=== PATIENT | female | born 1940 | race Caucasian/White ===

== ENCOUNTER 2018-01-09 12:20 | Emergency (ER) | payer OTHER ==
[~2018-01-09] VITALS: Ht 162.6 cm; Wt 91.8 kg
[~2018-01-09 12:20] MED LIST: ADVAIR 250/501 DISK IH; AMLODIPINE BESY10 MG PO; AMLODIPINE BESYL5 MG PO; ANTIVERT25 MG PO; ASPIRIN EC325 MG PO; ASPIRIN81 M1 PO; ATENOLOL100 M1 PO; ATENOLOL100 MG PO; ATORVASTATIN CA20 MG PO; ATORVASTATIN CA80 MG PO; CALCIUM-MAGNES1 EA11 PO; CALCIUM/MAGN1 TABLE2 PO; CITALOPRAM HBR10 MG PO; CLEOCIN300 MG PO; CRESTOR10 MG PO; DIGESTIVE ADVA1 EAC1 PO; DIGESTIVE ADVANTAGE PO; DIOVAN320 MG PO; DORZOLAMIDE HCL10 ML LEFT EYE; EFFEXOR XR75 MG PO; FIBER500 MG PO; FISH OIL CONC1 EACH PO; FLEXERIL10 MG PO; HEPARIN SO5000 UNITS SC; HYDROCHLOROTH12.5 M3 PO; HYDRODIURIL,ORE25 MG PO; LO-DOSE ASPIRIN81 M2 PO; LOVAZA1 GM PO; LOVENOX40 MG/0.4 SC; NEXIUM40 MG PO; NORVASC5 MG PO; Non-Formulary PO; PREDNISONE50 MG PO; SENNA PLUS TAB1 EACH PO; TRAMADOL HCL50 MG PO; TYLENOL REGULA325 MG PO; ULTRAM50 MG PO; XALATAN2.5 ML LEFT EYE; XALATAN2.5 ML RIGHT EYE; [UNRECOGNIZED DRUG - REMARK] PO
[2018-01-09 13:16] LABS: BASOPHIL (%) 0.7 % (0-1); BASOPHIL COUNT 0.1 K/uL (0-0.1); EOSINOPHIL (%) 3.2 % (0-5); EOSINOPHIL COUNT 0.3 K/uL (0-0.3); HEMATOCRIT 37.6 % (36.0-46.0); HEMOGLOBIN 12.4 G/DL (11.9-15.5); IMMATURE GRANULOCYTE (%) 0.3 % (0.0-0.7); LYMPHOCYTE (%) 18.8 % (15-42); LYMPHOCYTE COUNT 1.7 K/uL (1.0-2.8); MCH 29.6 PG (29.0-34.0); MCV 89.7 FL (83-99); MONOCYTE (%) 12.3 % (3-12); MONOCYTE COUNT 1.1 K/uL (0-0.8); NEUTROPHIL (%) 64.7 % (45-76); NEUTROPHIL COUNT 5.7 K/uL (1.8-6.4); PLATELET COUNT 250 K/uL (156-360); RBC DIS.WIDTH-CV 13.6 % (11.8-14.6); RBC DIS.WIDTH-SD 44.3 % (39-53); RED BLOOD COUNT 4.19 M/uL (3.80-5.20); WHITE BLOOD COUNT 8.8 K/uL (4.1-10.2)
[2018-01-09 13:24] LABS: CHLORIDE 102 mEq/L (99-109); POTASSIUM 4.6 mEq/L (3.7-5.4); SODIUM 138 mEq/L (136-147)
[2018-01-09 13:27] LABS: GLUCOSE 86 mg/dL (70-99); TOTAL PROTEIN 7.6 g/dL (6.4-8.3)
[2018-01-09 13:29] LABS: TOTAL BILIRUBIN 0.5 mg/dL (0.0-1.0)
[2018-01-09 13:30] LABS: PHOSPHORUS 3.6 mg/dL (2.5-4.9)
[2018-01-09 13:31] LABS: ALKALINE PHOSPHATASE 152 IU/L (3-129); CREATININE 0.9 mg/dL (0.6-1.3); GFR ESTIMATE (CALCULATED) > 59 mL/min/
[2018-01-09 13:32] LABS: AST (GOT) 33 IU/L (2-34); UREA NITROGEN (BUN) 19 mg/dL (9-23)
[2018-01-09 13:34] LABS: ALT (GPT) 24 IU/L (3-49); CREATINE KINASE 64 IU/L (1-294); TOTAL CK 64 IU/L (1-294)
[2018-01-09 13:40] LABS: CK-MB 1.4 ng/mL (0.0-4.9); CKMB RELATIVE INDEX 2.2 (0.0-3.9)
[2018-01-09 13:42] LABS: APPEARANCE CLEAR ((CLEAR)); BILIRUBIN NEGATIVE; BLOOD SMALL; COLOR YELLOW ((YELLOW)); GLUCOSE (STRIP) NEGATIVE; KETONES NEGATIVE; LEUKOCYTES NEGATIVE; NITRITE NEGATIVE; PROTEIN (STRIP) NEGATIVE; UROBILINOGEN 0.2 MG/DL (0.2-1.0)
[2018-01-09 13:45] LABS: BACTERIA RARE /HPF; EPITHELIAL CELLS RARE /HPF; HYALINE CASTS 0-5 /LPF; MUCUS TRACE /LPF; RED BLOOD CELLS 0-5 /HPF (0-5); UCUL ADDED? NO; WHITE BLOOD CELLS 0-5 /HPF (0-5)
[2018-01-09 17:21] VITALS: BP 144/67
== END 2018-01-09 17:25 ==
LOC: EME 12:20
PROVIDERS: Emergency Medicine
DX: M62.838 Other muscle spasm (principal); I69.351 Hemiplegia and hemiparesis following cerebral infarction affecting right dominant side; M79.604 Pain in right leg; K21.9 Gastro-esophageal reflux disease without esophagitis; J44.9 Chronic obstructive pulmonary disease, unspecified; I10 Essential (primary) hypertension; Z95.5 Presence of coronary angioplasty implant and graft; Z90.49 Acquired absence of other specified parts of digestive tract; Z90.710 Acquired absence of both cervix and uterus; Z88.0 Allergy status to penicillin
CPT/HCPCS: 74176; 80053; 81003; 82550; 82553; 83735; 84100; 85025; 93971; 99281; 99285